=== PATIENT | female | born 2005 | race Caucasian/White ===

== ENCOUNTER → 2024-02-03 | Outpatient (CLI) | payer MEDICAID, SELFPAY ==
--- NOTE | 2024-02-03 06:58 | CT_ITS ---
STUDY: CT LEFT ANKLE WITHOUT CONTRAST REASON FOR EXAM: Female, 18 years old. Minimally displaced medial malleolar fracture. Evaluate fracture displacement. RADIATION DOSAGE (If Supplied By Facility): CTDIvol = ( 15.35 ) mGy, DLP = ( 376.79 ) mGycm TECHNIQUE: Transaxial CT imaging of the ankle was performed post contrast administration. The examination was performed with intravenous administration of . Sagittal and coronal images were reconstructed. Individualized dose optimization techniques were used for this CT. COMPARISON: X-rays of the left wrist dated January 12, 2024 FINDINGS: Minimally displaced oblique fracture of the base of the medial malleolus originating at the tibiotalar joint. The distal fragment is displaced 2 mm laterally and 2 mm distally. Tibiotalar articulation is otherwise preserved with no asymmetry. Normal talus, calcaneus, navicular and cuboid tarsal bones. Normal subtalar, talonavicular and calcaneocuboid articulations. Normal navicular-cuneiform, cuneiform tarsal bones and intercuneiform articulations. Normal tarsometatarsal articulations and visualized metatarsi. Minimal soft tissue swelling over the medial malleolar fracture. CT/Extremity Lower without Contra IMPRESSION: Minimally displaced oblique fracture of the base of the medial malleolus originating at the level of the tibiotalar joint with minimal displacement as described. Minimal overlying soft tissue swelling. Electronically Signed: Fareed Bundy MD at 16:12 EDT ,
== END | disposition home or self-care (01) ==
PROVIDERS: Referring Provider Orthopaedic Surgery Sports Medicine; Visit Provider Orthopaedic Surgery Sports Medicine
DX: S82.52XA Displaced fracture of medial malleolus of left tibia, initial encounter for closed fracture (principal); X58.XXXA Exposure to other specified factors, initial encounter
CPT/HCPCS: 73700

== ENCOUNTER 2024-03-18 16:30 | Outpatient (RCR) | payer MEDICAID, SELFPAY ==
--- NOTE | 2024-02-19 17:00 | HP.PTEVAL ---
Patient's Visit Information Visit Information Visit Information: DENISE TOLENTINO is a 18 year old F referred to Physical Therapy by Dr. Fermin Louis MD with a diagnosis of L medial malleolus Fx. Date of Evaluation: 02/19/24 Physical Therapist: Garret Leal, PT, ATC Visit Plan Frequency: 3x /Week Duration: 4-6 Weeks Plan: L ankle DF stretching, strengthening, balance and proprio, bike, and HEP Subjective Subjective: Pt reports she fractured her L medial malleolus approximately 6 weeks ago. Pt notes she was practicing MMA when she squatted down and injured her L ankle. Pt reports she was put in a boot for a few weeks, and has been out of the boot for 2 weeks now. Pt reports she is still in a lot of pain. 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 Pt reports no sleep difficulty at this time secondary to pain, but notes increased pain in the mornings. Pt denies any tingling or numbness at this time. Pt reports she has stairs to enter her home, and notes she has to negotiate them one step at a time. Pt reports she is still limited with prolonged ambulation. Pt also notes she has to limp by the end of her work shift secondary to pain. Pt reports her L ankle pain is 2/10 while at rest, but notes it increases to 6/10 at worst. Pain L ankle: Pain Intensity (Out of 10): 2 Pain Intensity Range: 6 Objective Objective: Neuro: B LE sensation is WNL to light touch. B patellar reflex= 2/3 Observation: mild swelling noted in L ankle at this time ROM: R ankle DF= 12, PF= 55 degrees; L ankle DF= -2, PF= 30 MMT: R ankle DF= 41, PF= 42 #F; L ankle DF= 10, PF= 16 #F 30 sec sit to stand test: 9 times Balance/Special Test Scores Lower Extremity Functional Score: 36 Goals Goal 1:: Decrease L ankle pain x 50% to aid with work tolerance Goal Time Frame: 4-6 Weeks Goal 2:: Increase L ankle strength x 10#F to aid with stair negotiation Goal Time Frame: 4-6 Weeks Goal 3:: Increase L ankle DF ROM x 10 degrees to aid with restoring a more normalized gait pattern Goal Time Frame: 4-6 Weeks Goal 4:: I with HEP Goal Time Frame: 4-6 Weeks Goal 5:: Pt will perform TUG test in under 8 seconds to aid with functional community ambulation Goal Time Frame: 4-6 Weeks Rehabilitation Potential Physical Therapy Diagnosis: Pt has L ankle weakness, limited ROM, and pain secondary to L medial ankle Fx Rehabilitation Potential: Good Anticipated Interventions Patient/Client Instruction: Educate patient on: Condition and Plan of Care For the Purpose of:: To improve self management Therapeutic Exercise to Include: Strength training, Endurance training, Balance training, Flexibilty training, Gait and locomotor training and Active ROM For the Purpose of:: To decrease pain, To increase ROM and To improve muscle performance and motor function Cryotherapy (ice pack, ice massage): Yes For the Purpose of:: To decrease pain Text: Thank you for the opportunity to evaluate your patient. For Medicare and Medicare HMO plans, please review the plan of care and approve it. It will need to be FAXED BACK to us at [phone] for Medicare purposes. For Medicare only, by signing this I certify the plan of care. Please let me know if there are questions or concerns regarding this plan of care. Physician Signature: Date:
--- NOTE | 2024-03-18 17:18 | HP.PTDCSUM_ITS ---
Discharge Summary D/C summary: It has been my pleasure to treat DENISE TOLENTINO referred by Dr. Fermin Louis MD, with the diagnosis of L medial malleolus Fx for a total of 8 visit(s). Discharge Date: Please see the following information for a summary of their discharge status. Subjective Subjective: I am ready to be done. Pain L ankle: Pain Intensity (Out of 10): 0 Objective Objective/Function: L ankle pain is rated at 0-4/10 L ankle MMT: DF= 17, PF= 32 #F L ankle DF ROM: 17 degrees TUG 8 sec Tx goals achieved Goals Goal 1:: Decrease L ankle pain x 50% to aid with work tolerance Goal Progress: Goal Met Goal 2:: Increase L ankle strength x 10#F to aid with stair negotiation Goal Progress: Goal Met Goal 3:: Increase L ankle DF ROM x 10 degrees to aid with restoring a more normalized gait pattern Goal Progress: Goal Met Goal 4:: I with HEP Goal Progress: Goal Met Goal 5:: Pt will perform TUG test in under 8 seconds to aid with functional community ambulation Goal Progress: Goal Met Plan Plan: Discharge to [facility] D/C Information d/c sentence: If there are questions or concerns regarding this patient's physical therapy, please feel free to call me at [phone]. Thank you for the referral of this patient. Sincerely, Garret Leal, PT, ATC Balance/Gait/Functional tests Balance/Special Test Scores Lower Extremity Functional Score: 80
== END 2024-03-18 19:00 | disposition home or self-care (01) ==
LOC: PT 16:30
PROVIDERS: Referring Provider Orthopaedic Surgery Sports Medicine; Visit Provider Orthopaedic Surgery Sports Medicine
DX: S82.52XD Displaced fracture of medial malleolus of left tibia, subsequent encounter for closed fracture with routine healing (principal)
CPT/HCPCS: 97110; 97161; 97530